=== PATIENT | male | born 1950 | race Caucasian/White ===

== ENCOUNTER → 2017-11-21 | Outpatient (CLI) | payer BC ==
[~2017-11-21] MED LIST: ANDROGEL2.5 GM TOP; CARBAMAZEPINE200 MG PO; SYNTHROID100 MCG PO
[2017-11-21 07:10] LABS: BASOPHILS % 0.5 % (0.0-1.0); EOSINOPHILS # (AUTO) 0.1 (0.0-0.4); EOSINOPHILS % 3.2 % (0.0-6.0); HEMATOCRIT 41.1 % (38.2-49.6); HEMOGLOBIN 14.1 g/dL (14.0-18.0); LYMPHOCYTES # (AUTO) 1.6 (1.0-3.2); MEAN CORPUSCULAR HEMOGLOBIN 32.1 pg (28-32); MEAN CORPUSCULAR HGB CONC 34.3 g/dL (31-35); MEAN CORPUSCULAR VOLUME 93.6 fL (81-99); MONOCYTES # (AUTO) 0.5 (0.2-0.8); MONOCYTES % 11.1 % (4.4-11.3); NEUTROPHILS # (AUTO) 2.1 (2.1-6.9); PLATELET COUNT 209 x10e3/uL (140-360); RED BLOOD COUNT 4.39 x10e6/uL (4.3-5.7)
[2017-11-21 07:50] LABS: ALANINE AMINOTRANSFERASE 11 IU/L (0-55); ALBUMIN 4.2 g/dL (3.5-5.0); ALBUMIN/GLOBULIN RATIO 1.3 (0.8-2.0); ALKALINE PHOSPHATASE 60 IU/L (40-150); ANION GAP 13.5 mmol/L (8-16); BLOOD UREA NITROGEN 12 mg/dL (7-26); BUN/CREATININE RATIO 14 (6-25); CALCIUM 9.4 mg/dL (8.4-10.2); CARBON DIOXIDE 26 mmol/L (22-29); CHLORIDE 103 mmol/L (98-107); CREATININE, SERUM 0.86 mg/dL (0.72-1.25); EST GLOMERULAR FILTRATION RATE > 60 ML/MIN (60-); GLUCOSE 92 mg/dL (74-118); POTASSIUM 4.5 mmol/L (3.5-5.1); SODIUM 138 mmol/L (136-145)
[2017-11-21 07:55] LABS: CARBAMAZEPINE (TEGRETOL) 9.54 ug/mL (4.0-12.0)
== END ==
LOC: LAB 06:56
PROVIDERS: ATTEND Psychiatry & Neurology Neurology
DX: G40.909 Epilepsy, unspecified, not intractable, without status epilepticus (principal)
CPT/HCPCS: 36415; 80053; 80156; 85025

== ENCOUNTER → 2019-02-06 | Outpatient (CLI) | payer BC ==
[2019-02-06 10:01] LABS: BASOPHILS % 0.7 % (0.0-1.0); EOSINOPHILS # (AUTO) 0.1 (0.0-0.4); HEMOGLOBIN 13.9 g/dL (14.0-18.0); LYMPHOCYTES # (AUTO) 1.6 (1.0-3.2); LYMPHOCYTES % 26.2 % (18.0-39.1); MEAN CORPUSCULAR HEMOGLOBIN 32.3 pg (28-32); MEAN CORPUSCULAR HGB CONC 35.6 g/dL (31-35); MEAN CORPUSCULAR VOLUME 90.7 fL (81-99); MONOCYTES # (AUTO) 0.5 (0.2-0.8); MONOCYTES % 8.9 % (4.4-11.3); NEUTROPHILS # (AUTO) 3.7 (2.1-6.9); NEUTROPHILS % 61.9 % (38.7-80.0); PLATELET COUNT 214 x10e3/uL (140-360); RED CELL DISTRIBUTION WIDTH 12.5 % (11.7-14.4)
[2019-02-06 10:19] LABS: ALANINE AMINOTRANSFERASE 13 IU/L (0-55); ALBUMIN 4.3 g/dL (3.5-5.0); ALBUMIN/GLOBULIN RATIO 1.5 (0.8-2.0); ALKALINE PHOSPHATASE 61 IU/L (40-150); ANION GAP 9.8 mmol/L (8-16); BLOOD UREA NITROGEN 12 mg/dL (7-26); BUN/CREATININE RATIO 14 (6-25); CALCIUM 9.2 mg/dL (8.4-10.2); CARBON DIOXIDE 27 mmol/L (22-29); CHLORIDE 103 mmol/L (98-107); CREATININE, SERUM 0.87 mg/dL (0.72-1.25); EST GLOMERULAR FILTRATION RATE > 60 ML/MIN (60-); GLUCOSE 77 mg/dL (74-118); POTASSIUM 3.8 mmol/L (3.5-5.1); SODIUM 136 mmol/L (136-145)
[2019-02-06 10:59] LABS: CARBAMAZEPINE (TEGRETOL) 7.39 ug/mL (4.0-12.0)
== END ==
LOC: LAB 09:46
PROVIDERS: ATTEND Psychiatry & Neurology Neurology
DX: G40.909 Epilepsy, unspecified, not intractable, without status epilepticus (principal)
CPT/HCPCS: 36415; 80053; 80156; 85025

== ENCOUNTER → 2019-02-17 | Outpatient (CLI) | payer BC ==
[~2019-02-17] MED LIST changes: +IOPAMIDOL 370 MG/ML 200 ML INFUS..BTL INJ ONE; +SODIUM CHLORIDE 0.9% 250ML 250 ML ONE
[2019-02-17 10:34] LABS: BLOOD UREA NITROGEN 14 mg/dL (7-26); BUN/CREATININE RATIO 16 (6-25); CREATININE, SERUM 0.87 mg/dL (0.72-1.25); EST GLOMERULAR FILTRATION RATE > 60 ML/MIN (60-)
--- NOTE | 2019-02-17 12:21 | Diagnostic Imaging Report ---
EXAM: CT abdomen and pelvis without and with contrast - Hematuria protocol INDICATION: Gross Hematuria COMPARISON: None. TECHNIQUE: Abdomen and pelvis were scanned in prone position without and with contrast. Delayed phase imaging obtained. Coronal and sagittal reformations were obtained. Routine protocol was performed. Scan was performed when during portal venous phase. IV CONTRAST: 150 mL of Isovue 370 ORAL CONTRAST: Water RADIATION DOSE: Total DLP: 750.6 mGy*cm Dose modulation, iterative reconstruction, and/or weight based adjustment of the mA/kV was utilized to reduce the radiation dose to as low as reasonably achievable. COMPLICATIONS: None FINDINGS: LINES and TUBES: None. LOWER THORAX: Unremarkable HEPATOBILIARY: No focal hepatic lesions. No biliary ductal dilation. GALLBLADDER: Decompressed. No radio-opaque stones or sludge. No wall thickening. SPLEEN: No splenomegaly. Likely splenule. PANCREAS: No focal masses or ductal dilatation. ADRENALS: No adrenal nodules KIDNEYS/URETERS: Kidneys enhance symmetrically. No hydronephrosis. No evidence of solid mass. The majority of the ureters are opacified and demonstrate no specific evidence of urothelial lesion. A portion of the right mid ureter is not opacified. There is a sharp angulation in the left upper ureter consistent with kink on coronal series 702, image 49. There is a 1.6 cm left upper pole simple renal cyst. GI TRACT: There is apparent asymmetric thickening of the gastric wall of the fundus, measuring up to 2.0 cm. Small hiatal hernia. Mildly dilated rectum containing stool. No evidence of bowel obstruction. The appendix is not visualized, however there are no secondary signs of appendicitis. PELVIS: The bladder is opacified on delayed images. No definite mass lesion. There is mild apparent asymmetric wall thickening versus nonopacified layering fluid in the right posterior bladder, measuring up to 1.0 cm in thickness on series 6, image 141. The prostate is enlarged measuring up 3.6 x 5.6 x 5.1 cm. The estimated volume is 53 cc. LYMPH NODES: No lymphadenopathy. VESSELS: Unremarkable. PERITONEUM / RETROPERITONEUM: No free air or fluid. BONES AND SOFT TISSUES: No acute bony findings or suspicious lytic or blastic lesions. IMPRESSION: Possible mild asymmetric wall thickening versus layering fluid in the right posterior bladder, measuring up to 1.0 cm in thickness. This can be correlated with cystoscopy if clinically indicated. No evidence of solid renal mass or stone. Prostatomegaly as above. Apparent asymmetric gastric fundal wall thickening. Suggest endoscopy for further evaluation. Signed by: Dr. Merlin Glasgow MD on 02/17/2019 12:18 PM
== END ==
LOC: CT 09:53
PROVIDERS: ATTEND Urology
DX: R31.0 Gross hematuria (principal)
CPT/HCPCS: 36415; 74178; 82565; 84520; J7050; Q9967

== ENCOUNTER → 2020-06-23 | Outpatient (CLI) | payer BC ==
[~2020-06-23] MED LIST changes: -IOPAMIDOL 370 MG/ML 200 ML INFUS..BTL INJ ONE; -SODIUM CHLORIDE 0.9% 250ML 250 ML ONE
--- NOTE | 2020-06-23 17:22 | Diagnostic Imaging Report ---
TECHNIQUE: Magnetic resonance imaging of the LEFT KNEE was performed WITHOUT injected contrast. HISTORY: Acute left knee pain, medial meniscus tear COMPARISON: None available. FINDINGS: LIGAMENTS AND TENDONS: ACL: Intact PCL: Intact Collateral ligaments: Medial collateral ligament remains intact however overlying soft tissue edema, may represent low-grade sprain. Lateral collateral ligament is intact and unremarkable. Iliotibial band: Unremarkable Popliteal tendon: Intact Extensor mechanism: Intact. Mild patellar tendinosis. JOINT: Menisci: Medial: Oblique undersurface tear at the body and posterior horn of the medial meniscus with extension to the posterior root attachment. Associated extrusion of the meniscal body. Lateral: Intact Articular Cartilage: Medial Compartment: Diffuse low-grade cartilage thinning along the weightbearing medial femoral condyle and medial tibial plateau. No full-thickness defect. Lateral Compartment: Low-grade cartilage thinning along the lateral femoral condyle. No focal defects. Patellofemoral Compartment: Low-grade cartilage thinning along the median patellar ridge. No focal defect. Joint Fluid: Small joint effusion with synovitis. Additional small Hearn's cyst with fluid leaking into the surrounding musculature/soft tissues. BONE: No acute fracture. Lobulated T2 hyperintense, T1 hypointense lesion within the bone marrow of the distal femoral metaphysis measures up to 1.5 cm with internal septation and punctate hypointensity, favored to represent enchondroma. SOFT TISSUES: Diffuse subcutaneous edema along the anterior and medial aspect of the knee. Additional edema/fluid related to leaking Hearn's cyst. IMPRESSION: 1. Oblique undersurface tear at the body and posterior horn of the medial meniscus with extension to the posterior root attachment. Associated diffuse low-grade cartilage thinning in the medial compartment. 2. Medial collateral ligament remains intact however overlying soft tissue edema noted, may represent low-grade MCL sprain. 3. Additional low-grade cartilage thinning in the lateral and patellofemoral compartments. 4. Small joint effusion with synovitis. Associated small Hearn's cyst with fluid leaking into the surrounding soft tissues. Signed by: Dr. Rodrigo Pyle M.D. on 06/23/2020 5:19 PM
== END ==
LOC: MRI 15:02
PROVIDERS: ATTEND Orthopaedic Surgery Sports Medicine
DX: S83.242A Other tear of medial meniscus, current injury, left knee, initial encounter (principal)

== ENCOUNTER → 2020-06-30 | Outpatient (CLI) | payer BC ==
[2020-06-30 15:17] LABS: BASOPHILS % 0.6 % (0.0-1.0); EOSINOPHILS # (AUTO) 0.1 (0.0-0.4); EOSINOPHILS % 2.5 % (0.0-6.0); HEMATOCRIT 33.2 % (38.2-49.6); HEMOGLOBIN 12.5 g/dL (14.0-18.0); LYMPHOCYTES # (AUTO) 1.5 (1.0-3.2); LYMPHOCYTES % 29.4 % (18.0-39.1); MEAN CORPUSCULAR HEMOGLOBIN 36.4 pg (28-32); MEAN CORPUSCULAR HGB CONC 37.7 g/dL (31-35); MEAN CORPUSCULAR VOLUME 96.8 fL (81-99); MONOCYTES # (AUTO) 0.5 (0.2-0.8); MONOCYTES % 9.9 % (4.4-11.3); NEUTROPHILS % 57.4 % (38.7-80.0); PLATELET COUNT 146 x10e3/uL (140-360); RED BLOOD COUNT 3.43 x10e6/uL (4.3-5.7); RED CELL DISTRIBUTION WIDTH 14.4 % (11.7-14.4)
[2020-06-30 15:34] LABS: ALANINE AMINOTRANSFERASE 14 IU/L (0-55); ALBUMIN 4.3 g/dL (3.5-5.0); ALBUMIN/GLOBULIN RATIO 1.8 (0.8-2.0); ALKALINE PHOSPHATASE 54 IU/L (40-150); ANION GAP 14.8 mmol/L (8-16); BLOOD UREA NITROGEN 11 mg/dL (7-26); BUN/CREATININE RATIO 12 (6-25); CALCIUM 8.9 mg/dL (8.4-10.2); CARBON DIOXIDE 24 mmol/L (22-29); CHLORIDE 102 mmol/L (98-107); CREATININE, SERUM 0.94 mg/dL (0.72-1.25); EST GLOMERULAR FILTRATION RATE > 60 ML/MIN (60-); GLUCOSE 84 mg/dL (74-118); POTASSIUM 3.8 mmol/L (3.5-5.1); SODIUM 137 mmol/L (136-145)
== END ==
LOC: LAB 15:03
PROVIDERS: ATTEND Orthopaedic Surgery Sports Medicine
DX: Z01.818 Encounter for other preprocedural examination (principal); S83.242A Other tear of medial meniscus, current injury, left knee, initial encounter
CPT/HCPCS: 36415; 80053; 85025; 93005

== ENCOUNTER → 2020-09-28 | Outpatient (CLI) | payer OTHER | LOC: LAB 06:37 | PROVIDERS: ATTEND Nurse Practitioner | DX: Z12.5 Encounter for screening for malignant neoplasm of prostate (principal) | CPT/HCPCS: 84152 ==

== ENCOUNTER → 2021-06-23 | Outpatient (CLI) | payer OTHER ==
[2021-06-23 07:40] LABS: BASOPHILS % 0.7 % (0.0-1.0); EOSINOPHILS # (AUTO) 0.1 (0.0-0.4); EOSINOPHILS % 2.6 % (0.0-6.0); HEMOGLOBIN 13.3 g/dL (14.0-18.0); LYMPHOCYTES # (AUTO) 1.5 (1.0-3.2); LYMPHOCYTES % 32.8 % (18.0-39.1); MEAN CORPUSCULAR HEMOGLOBIN 31.6 pg (28-32); MEAN CORPUSCULAR HGB CONC 34.1 g/dL (31-35); MEAN CORPUSCULAR VOLUME 92.6 fL (81-99); MONOCYTES # (AUTO) 0.4 (0.2-0.8); MONOCYTES % 8.5 % (4.4-11.3); NEUTROPHILS # (AUTO) 2.5 (2.1-6.9); NEUTROPHILS % 55.2 % (38.7-80.0); PLATELET COUNT 228 x10e3/uL (140-360); RED BLOOD COUNT 4.21 x10e6/uL (4.3-5.7); RED CELL DISTRIBUTION WIDTH 12.5 % (11.7-14.4)
[2021-06-23 08:11] LABS: ALBUMIN 4.4 g/dL (3.5-5.0); ALBUMIN/GLOBULIN RATIO 1.6 (0.8-2.0); ANION GAP 11.7 mmol/L (8-16); CALCIUM 9.2 mg/dL (8.4-10.2); CREATININE, SERUM 0.91 mg/dL (0.72-1.25); POTASSIUM 3.7 mmol/L (3.5-5.1)
== END ==
LOC: LAB 06:12
PROVIDERS: ATTEND Psychiatry & Neurology Epilepsy
DX: G40.309 Generalized idiopathic epilepsy and epileptic syndromes, not intractable, without status epilepticus (principal)
CPT/HCPCS: 36415; 80053; 85025

== ENCOUNTER → 2021-06-28 | Outpatient (CLI) | payer OTHER | LOC: DX 12:32 | PROVIDERS: ATTEND Psychiatry & Neurology Epilepsy | DX: Q78.2 Osteopetrosis (principal); G40.309 Generalized idiopathic epilepsy and epileptic syndromes, not intractable, without status epilepticus | CPT/HCPCS: 77080 ==